=== PATIENT | male | born 1950 | race Caucasian/White ===

== ENCOUNTER → 2023-12-17 06:22 | Day surgery (SDC) | payer MEDICARE, SELFPAY | LOC: GI 06:22 | PROVIDERS: ATTENDING PHYSICIAN Specialist; FAMILY PHYSICIAN Internal Medicine | DX: Z12.11 Encounter for screening for malignant neoplasm of colon (principal); D12.0 Benign neoplasm of cecum; D12.5 Benign neoplasm of sigmoid colon; Z86.010 Personal history of colon polyps | CPT/HCPCS: 45380; 88305 ==